=== PATIENT | female | born 1985 | race Two or more races ===

== ENCOUNTER 2017-06-10 07:34 | Emergency (ER) | payer OTHER ==
[~2017-06-10] VITALS: Ht 162.6 cm; Wt 90.7 kg
[~2017-06-10 07:34] MED LIST: CELEBREX100 MG PO; OSEL75CA PO
[2017-06-10] MEDS ORDERED: BACTRIM DS TAB1 EACH PO (11:04)
== END 2017-06-10 11:57 | disposition home or self-care (01) ==
LOC: ER 07:34
DX: B34.9 Viral infection, unspecified (principal); N39.0 Urinary tract infection, site not specified

== ENCOUNTER 2018-09-27 09:52 | Outpatient (CLI) | payer OTHER ==
[~2018-09-27 09:52] MED LIST changes: +BACTRIM DS TAB1 EACH PO
== END 2018-09-27 10:06 | disposition home or self-care (01) ==
LOC: SONOGRAMA 09:52
DX: R10.2 Pelvic and perineal pain (principal)

== ENCOUNTER 2018-10-10 10:33 | Emergency (ER) | payer OTHER ==
[~2018-10-10] VITALS: Ht 162.6 cm; Wt 99.8 kg
[2018-10-10] MEDS ORDERED: ORPHENADRINE C100 MG PO (13:43)
[2018-10-10] MEDS ORDERED: KETO10TA2 PO (13:43)
== END 2018-10-10 13:51 | disposition home or self-care (01) ==
LOC: ER 10:33
DX: M54.5 Low back pain (principal)

== ENCOUNTER 2022-06-01 08:31 | Outpatient (CLI) | payer OTHER ==
[~2022-06-01 08:31] MED LIST changes: +KETO10TA2 PO; +ORPHENADRINE C100 MG PO
== END 2022-06-01 08:32 | disposition home or self-care (01) ==
LOC: SONOGRAMA 08:31
PROVIDERS: ATTEND Specialist
DX: N88.8 Other specified noninflammatory disorders of cervix uteri (principal)

== ENCOUNTER 2022-07-11 11:04 | Outpatient (CLI) | payer OTHER | END 2022-07-11 11:13 | disposition home or self-care (01) | LOC: SONOGRAMA 11:04 | PROVIDERS: ATTEND Specialist | DX: K80.10 Calculus of gallbladder with chronic cholecystitis without obstruction (principal) ==

== ENCOUNTER 2022-10-15 09:34 | Emergency (ER) | payer OTHER ==
[~2022-10-15] VITALS: Ht 162.6 cm; Wt 90.7 kg
[2022-10-17] MEDS ORDERED: PEPCID AC20 MG PO (12:12)
== END 2022-10-15 11:17 | disposition home or self-care (01) ==
LOC: ER 09:34
PROVIDERS: Emergency Medicine
DX: R10.9 Unspecified abdominal pain (principal); K80.20 Calculus of gallbladder without cholecystitis without obstruction

== ENCOUNTER 2022-10-23 06:55 | Day surgery (SDC) | payer OTHER ==
[~2022-10-23] VITALS: Ht 162.6 cm; Wt 90.7 kg
[~2022-10-23 06:55] MED LIST changes: +PEPCID AC20 MG PO
== END 2022-10-23 17:10 | disposition home or self-care (01) ==
LOC: CIR.AMB 06:55
PROVIDERS: ATTEND Specialist
DX: K80.10 Calculus of gallbladder with chronic cholecystitis without obstruction (principal); D13.5 Benign neoplasm of extrahepatic bile ducts; J45.909 Unspecified asthma, uncomplicated; Z20.822 Contact with and (suspected) exposure to COVID-19

== ENCOUNTER 2022-11-27 09:03 | Outpatient (CLI) | payer OTHER | END 2022-11-27 09:22 | disposition home or self-care (01) | LOC: TOM 09:03 | DX: Z12.31 Encounter for screening mammogram for malignant neoplasm of breast (principal); N63.0 Unspecified lump in unspecified breast ==

== ENCOUNTER 2024-03-05 09:41 | Outpatient (CLI) | payer OTHER | END 2024-03-05 09:46 | disposition home or self-care (01) | LOC: MAMO-SONO 09:41 | PROVIDERS: ATTEND Specialist | DX: Z12.39 Encounter for other screening for malignant neoplasm of breast (principal); Z12.31 Encounter for screening mammogram for malignant neoplasm of breast; E66.9 Obesity, unspecified ==

== ENCOUNTER 2025-01-12 15:28 | Emergency (ER) | payer OTHER ==
[~2025-01-12] VITALS: Ht 162.6 cm; Wt 59.0 kg
[2025-01-12] MEDS ORDERED: ORPHENADRINE CITRATE 30 MG/ML AMPUL IM ONE (16:45)
[2025-01-12] MEDS ORDERED: FAMOTIDINE/PF 20 MG/2 ML VIAL IV ONE (16:45)
[2025-01-12 18:09] LABS: BASO % 0.4 % (0.1-1.2); EOS # 0.06 (0.04-0.54); EOS % 0.6 % (0.7-7.0); LYMPH # 1.68 (1.18-3.74); LYMPH % 15.7 % (19.3-53.1); MEAN PLATELET VOLUME 9.70 fl (9.4-12.4); MONO # 0.51 (0.24-0.82); MONO % 4.8 % (4.7-12.5); NEUT # 8.40 (1.56-6.13); NEUT % 78.1 % (34.0-71.1); RED CELL DISTRIBUTION WIDTH 13.2 % (11.6-14.4)
[2025-01-12 18:13] LABS: URINE APPEARANCE Clear; URINE BILIRRUBIN Negative (NEGATIVE); URINE BLOOD Negative; URINE COLOR Yellow; URINE GLUCOSE Negative (NEGATIVE); URINE KETONE Negative (NEGATIVE); URINE LEUKOCYTE Small; URINE NITRATE Negative; URINE PROTEIN Negative (NEGATIVE); URINE UROBILINOGEN 0.2 E.U./dl
[2025-01-12 18:15] LABS: URINE BACTERIA 965.9 uL (0.0-1933); URINE EPITHELIAL CELLS 33.5 uL (0.0-38.8); URINE RBC 14.9 uL (0.0-20.8); URINE WBC 23.6 uL (0.0-23.2)
[2025-01-12 18:18] LABS: URINE CAST 0.00 uL (0.0-1.40)
[2025-01-12 19:07] LABS: ALT/SGPT 35.0 U/L (12-78); AST/SGOT 21.0 U/L (15-37); BILIRUBIN TOTAL 0.35 mg/dL (0.3-1.2); BUN CREA RATIO 11.0 (7.0-25.0); CREATININE SERUM 0.79 mg/dL (0.55-1.02); GFR 81.02; GLOBULINA 4.2 G/DL (2.4-3.5); GLUCOSE FASTING 98.0 mg/dL (65-100); OSMOLALITY SERUM 278.0 MOSM/KG (275-295); TSH 1.26 uIU/mL (0.358-3.74)
[2025-01-12] MEDS ORDERED: MACROBID 100 M100 MG PO (20:10)
[2025-01-12] MEDS ORDERED: NORFLEX100MG PO (20:10)
== END 2025-01-12 20:37 ==
LOC: ER 15:28
PROVIDERS: General Practice
DX: M62.838 Other muscle spasm (principal); F43.9 Reaction to severe stress, unspecified; R20.2 Paresthesia of skin; R07.89 Other chest pain; R00.2 Palpitations; R11.0 Nausea; F41.8 Other specified anxiety disorders